=== PATIENT | male | born 1990 | race Caucasian/White ===

== ENCOUNTER → 2021-07-07 14:24 | Outpatient (CLI) | payer OTHER, SELFPAY ==
[2021-07-07 14:55] LABS: Liquefaction Semen YES (YES); Volume Semen 2.5 (1.0-5.0)
[2021-07-07 14:56] LABS: Sperm Count 107 x10^6/mL (20-150); Sperm Motility 35% % Motile
[2021-07-07 14:59] LABS: Sperm Morphology 29 %ABNORM (0-30)
== END ==
PROVIDERS: Referring Provider Specialist; Visit Provider Specialist
DX: N46.9 Male infertility, unspecified (principal)
CPT/HCPCS: 89320